=== PATIENT | male | born 1985 | race Caucasian/White ===

== ENCOUNTER 2017-04-30 12:50 | Emergency (ER) | payer MEDICAID ==
[2017-04-30 14:16] LABS: UDS - AMPHET NEGATIVE QUAL (NEGATIVE); UDS - BARB NEGATIVE QUAL (NEGATIVE); UDS - BENZO NEGATIVE QUAL (NEGATIVE); UDS - COCAINE NEGATIVE QUAL (NEGATIVE); UDS - OPIATE NEGATIVE QUAL (NEGATIVE); UDS - PCP NEGATIVE QUAL (NEGATIVE); UDS - THC NEGATIVE QUAL (NEGATIVE)
== END 2017-04-30 17:56 | disposition home or self-care (01) ==
LOC: D.ER 12:50
PROVIDERS: Nurse Practitioner Family
DX: S61.212A Laceration without foreign body of right middle finger without damage to nail, initial encounter (principal); S61.214A Laceration without foreign body of right ring finger without damage to nail, initial encounter; W45.8XXA Other foreign body or object entering through skin, initial encounter; Y93.89 Activity, other specified; Y92.89 Other specified places as the place of occurrence of the external cause

== ENCOUNTER 2017-12-27 12:25 | Emergency (ER) | payer MEDICAID ==
[~2017-12-27] VITALS: Ht 182.9 cm; Wt 104.5 kg
[2017-12-27 12:38] VITALS: Ht 182.9 cm; Wt 104.5 kg
[2017-12-27] MEDS ORDERED: KEFLEX500 MG PO (14:01)
[2017-12-27 14:20] VITALS: BP 126/86
== END 2017-12-27 14:20 | disposition home or self-care (01) ==
LOC: D.ER 12:25
DX: S01.511A Laceration without foreign body of lip, initial encounter (principal); W22.8XXA Striking against or struck by other objects, initial encounter; Y93.89 Activity, other specified; Y92.019 Unspecified place in single-family (private) house as the place of occurrence of the external cause

== ENCOUNTER 2018-09-10 11:10 | Emergency (ER) | payer BC, MEDICAID ==
[~2018-09-10 11:10] MED LIST: KEFLEX500 MG PO
[2018-09-10 11:12] VITALS: BMI 34.0
[2018-09-10 13:29] LABS: UDS - AMPHET NEGATIVE QUAL (NEGATIVE); UDS - BARB NEGATIVE QUAL (NEGATIVE); UDS - BENZO NEGATIVE QUAL (NEGATIVE); UDS - COCAINE NEGATIVE QUAL (NEGATIVE); UDS - OPIATE NEGATIVE QUAL (NEGATIVE); UDS - PCP NEGATIVE QUAL (NEGATIVE); UDS - THC NEGATIVE QUAL (NEGATIVE)
[2018-09-10] MEDS ORDERED: BACLOFEN20 M1 PO (14:03)
[2018-09-10] MEDS ORDERED: VOLTAREN75 MG PO (14:03)
[2018-09-10 14:09] VITALS: BP 134/77
== END 2018-09-10 14:11 | disposition home or self-care (01) ==
LOC: D.ER 11:10
PROVIDERS: Family Medicine
DX: M54.2 Cervicalgia (principal); M25.512 Pain in left shoulder; W11.XXXA Fall on and from ladder, initial encounter; Y93.89 Activity, other specified; Y92.89 Other specified places as the place of occurrence of the external cause